=== PATIENT | female | born 1975 | race Caucasian/White ===

== ENCOUNTER 2016-05-18 12:47 | Outpatient (CLI) | payer OTHER ==
--- NOTE | 2016-05-18 14:09 | DIAGNOSTIC IMAGING REPORT ---
PROCEDURE: MG BILATERAL SCREENING W/CAD INDICATION: Screening. History of breast reduction surgery TECHNIQUE: Bilateral CC and MLO digital views. COMPARISON: Compared to prior outside mammogram from [place], [place] on 05/28/2015 FINDINGS: Computer-aided detection applied. Mildly dense parenchymal pattern with a few dystrophic calcifications. IMPRESSION: 1. Negative mammogram RESULT CODE: 1- Negative. A. A negative report should not delay biopsy if a dominant or clinically suspicious mass is present. 10-15% of cancers are not identified by x-ray. B. A negative report may reinforce clinical impression. C. Adenosis and dense breasts may obscure an underlying neoplasm. D. False positive reports average 6-10%. E.. A yearly screening mammogram is recommended. A reminder letter will be scheduled.
== END 2016-05-18 23:00 ==
LOC: MAM SRH 12:47
DX: Z12.31 Encounter for screening mammogram for malignant neoplasm of breast (principal); Z98.890 Other specified postprocedural states

== ENCOUNTER 2016-06-09 15:31 | Emergency (ER) | payer OTHER ==
--- NOTE | 2016-06-09 16:53 | ED ORDER SUMMARY ---
..... Patient: TRE SNIDER OrderSheet [facility] VisitID: [id number] [address] [place] [address] 40y, F Registration Date/Time: 06/09/2016 ORDER SHEET Weight: 125.6 kg (stated) Allergies: Abilify, Zyprexa GENERAL ORDERS: MEDICATION ORDERS: Phenergan IV 12.5 mg (HIGH ALERT MEDICATION, NOW) (15:59 06/09/2016 EKoroleva P.A.-C) (16:17 JSimbeck R.N.) Phenergan IV 12.5 mg (HIGH ALERT MEDICATION) (17:18 06/09/2016 EKoroleva P.A.-C) (17:26 JSimbeck R.N.) IV FLUIDS: IV NS : initial bolus 1000 mL (1000 mL/hr), then 1000 mL/hr for X1 (NOW); Chay (15:58 06/09/2016 EKoroleva P.A.-C) (16:17 JSimbeck R.N.) Toradol IV 30 mg (NOW) (15:58 06/09/2016 EKoroleva P.A.-C) (16:20 JSimbeck R.N.) Dilaudid IV 0.5 mg (HIGH ALERT MEDICATION, NOW) (15:58 06/09/2016 EKoroleva P.A.-C) (16:21 JSimbeck R.N.) Dilaudid IV 0.5 mg (HIGH ALERT MEDICATION, NOW) (17:18 06/09/2016 EKoroleva P.A.-C) (17:27 JSimbeck R.N.) ORDER SHEET NOTES: [Electronically signed by Haydee Apodaca PHannahAHannah-C (17:37 06/09/2016)] [Electronically signed by Esperanza Brumfield R.N. (08:39 06/15/2016)] [Electronically locked/signed by Esperanza Brumfield R.N. (08:39 06/15/2016)]
--- NOTE | 2016-06-09 16:53 | ED ORDER SUMMARY ---
..... Patient: TRE SNIDER OrderSheet [facility] VisitID: [id number] [address] [place] [address] 40y, F Registration Date/Time: 06/09/2016 ORDER SHEET Weight: 125.6 kg (stated) Allergies: Abilify, Zyprexa GENERAL ORDERS: MEDICATION ORDERS: Phenergan IV 12.5 mg (HIGH ALERT MEDICATION, NOW) (15:59 06/09/2016 EKoroleva P.A.-C) (16:17 JSimbeck R.N.) Phenergan IV 12.5 mg (HIGH ALERT MEDICATION) (17:18 06/09/2016 EKoroleva P.A.-C) (17:26 JSimbeck R.N.) IV FLUIDS: IV NS : initial bolus 1000 mL (1000 mL/hr), then 1000 mL/hr for X1 (NOW); Chay (15:58 06/09/2016 EKoroleva P.A.-C) (16:17 JSimbeck R.N.) Toradol IV 30 mg (NOW) (15:58 06/09/2016 EKoroleva P.A.-C) (16:20 JSimbeck R.N.) Dilaudid IV 0.5 mg (HIGH ALERT MEDICATION, NOW) (15:58 06/09/2016 EKoroleva P.A.-C) (16:21 JSimbeck R.N.) Dilaudid IV 0.5 mg (HIGH ALERT MEDICATION, NOW) (17:18 06/09/2016 EKoroleva P.A.-C) (17:27 JSimbeck R.N.) ORDER SHEET NOTES: [Electronically signed by Haydee Apodaca PHannahAHannah-C (17:37 06/09/2016)] [Electronically signed by Esperanza Brumfield R.N. (08:39 06/15/2016)] [Electronically locked/signed by Esperanza Brumfield R.N. (08:39 06/15/2016)]
--- NOTE | 2016-06-09 16:53 | ED CLINICAL REPORT ---
Clinical Report - Physicians/Mid Levels [facility] [address] [place] [address] 06/09/2016 15:33 [id number] Time Seen: 15:46 Mar 2016. Arrived- By private vehicle. Historian- patient. HISTORY OF PRESENT ILLNESS Is still present. Chief Complaint: HEADACHE. This started 4 days. It is described as similar to previous headaches. The patient has had nausea and vomiting. No preceding symptoms or numbness. (Patient reports migraine-like headache over the last 4 days, has tried all of her medications Imitrex and Motrin, has had nausea. No new neck pain, has a history of a bulging disc in her neck. Throbbing pain. Denies any fevers or chills. Denies any cough.). REVIEW OF SYSTEMS No sinus pressure, ear pain, diarrhea or skin rash. All systems otherwise negative, except as recorded above. SOCIAL HISTORY Never smoker. Alcohol use. No drug use. ADDITIONAL NOTES The nursing notes have been reviewed. PHYSICAL EXAM Vital Signs: 06/09/2016 17:16 BP: 90/60. HR: 72. RR: 16. O2 saturation: 97%. Pain level now: 8/10. Appearance: Alert. Eyes: Pupils equal, round and reactive to light. Eyes normal inspection. ENT: No nasal discharge or pharyngeal erythema. Neck: Normal inspection. CVS: Heart sounds normal. Respiratory: No respiratory distress. Abdomen: Soft. No abdominal tenderness. Back: Normal inspection. Neuro: Oriented X 3. Alert. No cerebellar findings. PROGRESS AND PROCEDURES Course of Care: Patient reports she usually has about 14-15 g a month, and occasionally a few times he has to come to the ER for pain relief. Patient reports her landlord drove her here. Headache is similar in nature. Has been ongoing for 4 days. No neck pain that is new. At this time suspicion for meningitis, several hemorrhage is low. Patient is stable. Patient/family counseled. Differential Diagnosis: I considered migraine, cluster headache, ischemic stroke, subarachnoid hemorrhage, vascular malformation, vascular dissection, malignant hypertension, cerebral venous thrombosis, carbon monoxide exposure, trigeminal neuralgia, Chuckie-Carter neuralgia, subdural hematoma, muscle tension, acute angle-closure glaucoma and pseudo-tumor cerebri as a possible cause of headache in this patient. This is a partial list of diagnoses considered. Disposition: Discharged. Condition: good. CLINICAL IMPRESSION Chronic recurrent migraine headache. INSTRUCTIONS Warnings: Further evaluation is necessary. Prescription Medications: Hydrocodone/APAP 5mg / 325mg: take 1 orally every 6 hours as needed for pain. Dispense twelve (12). No refill. Zofran (orally disintegrating tablets) 4 mg: take 1 orally every 6 hours as needed for nausea. Dispense ten (10). No refill. Substitution is permissible. Follow-up: Follow up with a specialist in three days. Understanding of the discharge instructions verbalized. (Electronically signed by Haydee Apodaca P.A.-C 06/09/2016 17:37)
--- NOTE | 2016-06-09 16:53 | ED NURSING NOTES ---
Clinical Report - Nurses [address] [place] [address] 06/09/2016 15:33 Patient: TRE SNIDER TRIAGE Triage time 15:38. Acuity: LEVEL 4. Chief Complaint: MIGRAINE HEADACHE and (x4 days. Photophobia, nausea, vomiting, headache, unable to eat.). 15:41 06/09/16. ABE COMA SCORE: [place] Coma Scale: 15- eyes open spontaneously (4); best verbal response- oriented x 4 (5); best motor response- obeys commands (6). --15:50 Ernesto Lee R.N. 15:38 06/09/16. BP: 120/93. HR: 82. RR: 16. O2 saturation: 96% on room air. Temp: 97.4 F (oral). Pain level now: 12/10. --15:50 Ernesto Lee R.N. 15:51 06/09/16. SEPSIS SCREEN: Sepsis Screen. Negative (no infection suspected/documented). --15:51 Ernesto Lee R.N. Weight: 125.6 kg stated. Height/Length: 71 inches Per Patient. BMI: 38.6. --15:47 Ernesto Lee R.N. Medications Imitrex Oral. --15:40 Ernesto Lee R.N. Ibuprofen Oral. --15:40 Ernesto Lee R.N. SEROquel Oral. --15:46 Ernesto Lee R.N. Depakote Oral. --15:46 Ernesto Lee R.N. Propranolol HCl ER Oral. --15:46 Ernesto Lee R.N. Provastatin . --15:46 Ernesto Lee R.N. Topamax Oral. --15:46 Ernesto Lee R.N. TraZODone HCl Oral. --15:46 Ernesto Lee R.N. Robaxin-750 Oral. --15:47 Simbeck, Ernesto, R.N. Allergies Abilify. --15:42 Ernesto Lee R.N. Zyprexa. --15:42 Ernesto Lee R.N. History Historian: patient. 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 (Imitrex, Robaxin, Cold packs,). SOCIAL HX: Never smoker. Occasional alcohol use. No drug use. ABUSE ASSESSMENT: No report of abuse. --15:50 Ernesto Lee R.N. PROBLEMS: Migraine Headache. --15:41 Ernesto Lee R.N. Bipolar Disorder. --15:47 Ernesto Lee R.N. ADDITIONAL SURGERIES: Appendectomy. Breast Reduction. Cholecystectomy. Hysterectomy. Tubal Ligation. --15:47 Ernesto Lee R.N. Interventions ID band on patient. To treatment room. --15:50 Ernesto Lee R.N. PHYSICAL ASSESSMENT 15:52 06/09/16. Ambulatory to room. GENERAL / NEURO / PSYCH: Alert. Oriented X 4. Appears in pain. Speech within normal limits. HEENT: No facial asymmetry noted. Photophobia present. Pupils equal, round and reactive to light. RESPIRATORY: Respirations not labored. Breath sounds within normal limits. CVS: Capillary refill less than 2 seconds. GI / : The patient has had nausea. Abdomen soft and nontender. SKIN: Skin is warm and dry. --15:53 Ernesto Lee R.N. NURSING PROGRESS NOTES 15:54 06/09/16. Head of bed elevated. Reassurance given. Lights dimmed. Two patient identifiers checked. Call light placed in reach. Bed placed in lowest position. Brakes of bed on. Patient ready for evaluation- chart flagged. --15:54 Ernesto Lee R.N. 16:05 06/09/2016 Site #1 started via IV in the right forearm with an 20g angiocath, with aseptic technique and good blood return; one attempt. Saline lock flushed with 10 mL saline. --16:17 Ernesto Lee R.N. 16:05 06/09/2016 Started bag #1 1000 mL IV Fluids IV NS (Saline); bolus of 1000 mL over 45 minute(s) via site #1. Allergies verified and confirmed 5 rights. IV patency established. IV site checked: no pain, redness, or swelling. IV flushed thoroughly pre- and post-medication administration. --16:17 Ernesto Lee R.N. 16:10 06/09/2016 PHENERGAN (Promethazine HCl) IVP 12.5 mg given over 2 minute(s) via site #1. Allergies verified and confirmed 5 rights. IV patency established. IV site checked: no pain, redness, or swelling. IV flushed thoroughly pre- and post-medication administration. IVP given by RN. --16:17 Ernesto Lee R.N. 16:12 06/09/2016 Toradol IVP 30 mg given over 1 minute(s) via site #1. Allergies verified and confirmed 5 rights. IV patency established. IV site checked: no pain, redness, or swelling. IV flushed thoroughly pre- and post-medication administration. IVP given by RN. --16:20 Ernesto eLe R.N. 16:14 06/09/2016 Dilaudid (HYDROmorphone HCl PF) IVP 0.5 mg given over 1 minute(s) via site #1. Allergies verified, confirmed 5 rights and sedative warning given to the patient. IV patency established. IV site checked: no pain, redness, or swelling. IV flushed thoroughly pre- and post-medication administration. IVP given by RN. --16:21 Ernesto Lee R.N. 16:53 06/09/2016 IV Fluids IV NS Bag Change: bag #1 completed. Total amount infused: 1000. STARTED bag #2 (1000 mL) at 1000 mL/hr. Confirmed 5 rights. IV patency established. IV site checked: no pain, redness, or swelling. IV flushed thoroughly. --16:53 Ernesto Lee R.N. 16:54 06/09/2016 PHENERGAN IVP Response: no adverse reaction pain is improving. Symptoms have improved. --16:54 Ernesto Lee R.N. 16:54 06/09/2016 Toradol IVP Response: no adverse reaction pain is improving. Symptoms have improved. --16:54 Ernesto Lee R.N. 16:54 06/09/2016 Dilaudid IVP Response: no adverse reaction pain is improving. Symptoms have improved. --16:54 Ernesto Lee R.N. 16:05 06/09/16. BP: 101/70. HR: 72. RR: 16. O2 saturation: 94% on room air. Pain level now: 12/10. --16:56 Ernesto Lee R.N. 16:45 06/09/16. BP: 94/61. HR: 72. RR: 16. O2 saturation: 94% on room air. Pain level now: 11/09. --16:57 Ernesto Lee R.N. <<STRICKEN ENTRY-- 16:45 06/09/16. BP: 94/61. HR: 72. RR: 16. O2 saturation: 94% on room air. Pain level now: 09/09. --16:57 Ernesto Lee R.N. --END STRIKE>> Correction. --17:18 Ernesto Lee R.N. 17:16 06/09/16. BP: 90/60. HR: 72. RR: 16. O2 saturation: 97% on room air. Pain level now: 11/09. --17:17 Ernesto Lee R.N. 17:22 06/09/2016 PHENERGAN (Promethazine HCl) IVP 12.5 mg given over 2 minute(s) via site #1. Allergies verified and confirmed 5 rights. IV patency established. IV site checked: no pain, redness, or swelling. IV flushed thoroughly pre- and post-medication administration. IVP given by RN. --17:26 Ernesto Lee R.N. 17:24 06/09/2016 Dilaudid (HYDROmorphone HCl PF) IVP 0.5 mg given over 1 minute(s) via site #1. Allergies verified, confirmed 5 rights and sedative warning given to the patient. IV patency established. IV site checked: no pain, redness, or swelling. IV flushed thoroughly pre- and post-medication administration. IVP given by RN. --17:27 Ernesto Lee R.N. 17:40 06/09/2016 IV Fluids IV NS Discontinued: bag #2 completed. Total amount infused: 1000 mL. IV patency established. IV site checked: no pain, redness, or swelling. IV flushed thoroughly. --17:51 Ernesto Lee R.N. 17:46 06/09/2016 Site #1 removed upon discharge. Bandage applied. --17:51 Ernesto Lee R.N. DISPOSITION / DISCHARGE 17:49 06/09/16. Departure time: 1748. Condition at departure: improved and stable. No learning barriers present. Discharge instructions provided and reviewed with the patient. Reviewed medication(s). Patient verbalized understanding. Written instructions provided in Guyanese. The patient was discharged by the physician assistant housekeeping manager. She was discharged home and accompanied by freight car inspector. She left the Emergency Department ambulatory and via private vehicle. Fiberglass Container Winding Operator driving. --17:51 Ernesto Lee R.N. 17:40 06/09/16. BP: 106/67. HR: 88. RR: 16. O2 saturation: 98% on room air. Temp: 97.7 F (oral). Pain level now: 09/09. --17:51 Ernesto Lee R.N. Locked/Released at 06/15/2016 8:39 by Esperanza Brumfield R.N.
--- NOTE | 2016-06-09 16:53 | ED NURSING NOTES ---
Clinical Report - Nurses [address] [place] [address] 06/09/2016 15:33 Patient: TRE SNIDER TRIAGE Triage time 15:38. Acuity: LEVEL 4. Chief Complaint: MIGRAINE HEADACHE and (x4 days. Photophobia, nausea, vomiting, headache, unable to eat.). 15:41 06/09/16. ABE COMA SCORE: [place] Coma Scale: 15- eyes open spontaneously (4); best verbal response- oriented x 4 (5); best motor response- obeys commands (6). --15:50 Ernesto Lee R.N. 15:38 06/09/16. BP: 120/93. HR: 82. RR: 16. O2 saturation: 96% on room air. Temp: 97.4 F (oral). Pain level now: 12/10. --15:50 Ernesto Lee R.N. 15:51 06/09/16. SEPSIS SCREEN: Sepsis Screen. Negative (no infection suspected/documented). --15:51 Ernesto Lee R.N. Weight: 125.6 kg stated. Height/Length: 71 inches Per Patient. BMI: 38.6. --15:47 Ernesto Lee R.N. Medications Imitrex Oral. --15:40 Ernesto Lee R.N. Ibuprofen Oral. --15:40 Ernesto Lee R.N. SEROquel Oral. --15:46 Ernesto Lee R.N. Depakote Oral. --15:46 Ernesto Lee R.N. Propranolol HCl ER Oral. --15:46 Ernesto Lee R.N. Provastatin . --15:46 Ernesto Lee R.N. Topamax Oral. --15:46 Ernesto Lee R.N. TraZODone HCl Oral. --15:46 Ernesto Lee R.N. Robaxin-750 Oral. --15:47 Simbeck, Ernesto, R.N. Allergies Abilify. --15:42 Ernesto Lee R.N. Zyprexa. --15:42 Ernesto Lee R.N. History Historian: patient. 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 (Imitrex, Robaxin, Cold packs,). SOCIAL HX: Never smoker. Occasional alcohol use. No drug use. ABUSE ASSESSMENT: No report of abuse. --15:50 Ernesto Lee R.N. PROBLEMS: Migraine Headache. --15:41 Ernesto Lee R.N. Bipolar Disorder. --15:47 Ernesto Lee R.N. ADDITIONAL SURGERIES: Appendectomy. Breast Reduction. Cholecystectomy. Hysterectomy. Tubal Ligation. --15:47 Ernesto Lee R.N. Interventions ID band on patient. To treatment room. --15:50 Ernesto Lee R.N. PHYSICAL ASSESSMENT 15:52 06/09/16. Ambulatory to room. GENERAL / NEURO / PSYCH: Alert. Oriented X 4. Appears in pain. Speech within normal limits. HEENT: No facial asymmetry noted. Photophobia present. Pupils equal, round and reactive to light. RESPIRATORY: Respirations not labored. Breath sounds within normal limits. CVS: Capillary refill less than 2 seconds. GI / : The patient has had nausea. Abdomen soft and nontender. SKIN: Skin is warm and dry. --15:53 Ernesto Lee R.N. NURSING PROGRESS NOTES 15:54 06/09/16. Head of bed elevated. Reassurance given. Lights dimmed. Two patient identifiers checked. Call light placed in reach. Bed placed in lowest position. Brakes of bed on. Patient ready for evaluation- chart flagged. --15:54 Ernesto Lee R.N. 16:05 06/09/2016 Site #1 started via IV in the right forearm with an 20g angiocath, with aseptic technique and good blood return; one attempt. Saline lock flushed with 10 mL saline. --16:17 Ernesto Lee R.N. 16:05 06/09/2016 Started bag #1 1000 mL IV Fluids IV NS (Saline); bolus of 1000 mL over 45 minute(s) via site #1. Allergies verified and confirmed 5 rights. IV patency established. IV site checked: no pain, redness, or swelling. IV flushed thoroughly pre- and post-medication administration. --16:17 Ernesto Lee R.N. 16:10 06/09/2016 PHENERGAN (Promethazine HCl) IVP 12.5 mg given over 2 minute(s) via site #1. Allergies verified and confirmed 5 rights. IV patency established. IV site checked: no pain, redness, or swelling. IV flushed thoroughly pre- and post-medication administration. IVP given by RN. --16:17 Ernesto Lee R.N. 16:12 06/09/2016 Toradol IVP 30 mg given over 1 minute(s) via site #1. Allergies verified and confirmed 5 rights. IV patency established. IV site checked: no pain, redness, or swelling. IV flushed thoroughly pre- and post-medication administration. IVP given by RN. --16:20 Ernesto Lee R.N. 16:14 06/09/2016 Dilaudid (HYDROmorphone HCl PF) IVP 0.5 mg given over 1 minute(s) via site #1. Allergies verified, confirmed 5 rights and sedative warning given to the patient. IV patency established. IV site checked: no pain, redness, or swelling. IV flushed thoroughly pre- and post-medication administration. IVP given by RN. --16:21 Ernesto Lee R.N. 16:53 06/09/2016 IV Fluids IV NS Bag Change: bag #1 completed. Total amount infused: 1000. STARTED bag #2 (1000 mL) at 1000 mL/hr. Confirmed 5 rights. IV patency established. IV site checked: no pain, redness, or swelling. IV flushed thoroughly. --16:53 Ernesto Lee R.N. 16:54 06/09/2016 PHENERGAN IVP Response: no adverse reaction pain is improving. Symptoms have improved. --16:54 Ernesto Lee R.N. 16:54 06/09/2016 Toradol IVP Response: no adverse reaction pain is improving. Symptoms have improved. --16:54 Ernesto Lee R.N. 16:54 06/09/2016 Dilaudid IVP Response: no adverse reaction pain is improving. Symptoms have improved. --16:54 Ernesto Lee R.N. 16:05 06/09/16. BP: 101/70. HR: 72. RR: 16. O2 saturation: 94% on room air. Pain level now: 12/10. --16:56 Ernesto Lee R.N. 16:45 06/09/16. BP: 94/61. HR: 72. RR: 16. O2 saturation: 94% on room air. Pain level now: 11/09. --16:57 Ernesto Lee R.N. <<STRICKEN ENTRY-- 16:45 06/09/16. BP: 94/61. HR: 72. RR: 16. O2 saturation: 94% on room air. Pain level now: 09/09. --16:57 Ernesto Lee R.N. --END STRIKE>> Correction. --17:18 Ernesto Lee R.N. 17:16 06/09/16. BP: 90/60. HR: 72. RR: 16. O2 saturation: 97% on room air. Pain level now: 11/09. --17:17 Ernesto Lee R.N. 17:22 06/09/2016 PHENERGAN (Promethazine HCl) IVP 12.5 mg given over 2 minute(s) via site #1. Allergies verified and confirmed 5 rights. IV patency established. IV site checked: no pain, redness, or swelling. IV flushed thoroughly pre- and post-medication administration. IVP given by RN. --17:26 Ernesto Lee R.N. 17:24 06/09/2016 Dilaudid (HYDROmorphone HCl PF) IVP 0.5 mg given over 1 minute(s) via site #1. Allergies verified, confirmed 5 rights and sedative warning given to the patient. IV patency established. IV site checked: no pain, redness, or swelling. IV flushed thoroughly pre- and post-medication administration. IVP given by RN. --17:27 Ernesto Lee R.N. 17:40 06/09/2016 IV Fluids IV NS Discontinued: bag #2 completed. Total amount infused: 1000 mL. IV patency established. IV site checked: no pain, redness, or swelling. IV flushed thoroughly. --17:51 Ernesto Lee R.N. 17:46 06/09/2016 Site #1 removed upon discharge. Bandage applied. --17:51 Ernesto Lee R.N. DISPOSITION / DISCHARGE 17:49 06/09/16. Departure time: 1748. Condition at departure: improved and stable. No learning barriers present. Discharge instructions provided and reviewed with the patient. Reviewed medication(s). Patient verbalized understanding. Written instructions provided in Turkmen. The patient was discharged by the physician operations manager assistant. She was discharged home and accompanied by complex care nurse practitioner. She left the Emergency Department ambulatory and via private vehicle. Ribbon Sweatband Operator driving. --17:51 Ernesto Lee R.N. 17:40 06/09/16. BP: 106/67. HR: 88. RR: 16. O2 saturation: 98% on room air. Temp: 97.7 F (oral). Pain level now: 09/09. --17:51 Ernesto Lee R.N. Locked/Released at 06/15/2016 8:39 by Esperanza Brumfield R.N.
--- NOTE | 2016-06-09 16:53 | ED CLINICAL REPORT ---
Clinical Report - Physicians/Mid Levels [facility] [address] [place] [address] 06/09/2016 15:33 [facility] [id number] Time Seen: 15:46 Mar 2016. Arrived- By private vehicle. Historian- patient. HISTORY OF PRESENT ILLNESS Is still present. Chief Complaint: HEADACHE. This started 4 days. It is described as similar to previous headaches. The patient has had nausea and vomiting. No preceding symptoms or numbness. (Patient reports migraine-like headache over the last 4 days, has tried all of her medications Imitrex and Motrin, has had nausea. No new neck pain, has a history of a bulging disc in her neck. Throbbing pain. Denies any fevers or chills. Denies any cough.). REVIEW OF SYSTEMS No sinus pressure, ear pain, diarrhea or skin rash. All systems otherwise negative, except as recorded above. SOCIAL HISTORY Never smoker. Alcohol use. No drug use. ADDITIONAL NOTES The nursing notes have been reviewed. PHYSICAL EXAM Vital Signs: 06/09/2016 17:16 BP: 90/60. HR: 72. RR: 16. O2 saturation: 97%. Pain level now: 8/10. Appearance: Alert. Eyes: Pupils equal, round and reactive to light. Eyes normal inspection. ENT: No nasal discharge or pharyngeal erythema. Neck: Normal inspection. CVS: Heart sounds normal. Respiratory: No respiratory distress. Abdomen: Soft. No abdominal tenderness. Back: Normal inspection. Neuro: Oriented X 3. Alert. No cerebellar findings. PROGRESS AND PROCEDURES Course of Care: Patient reports she usually has about 14-15 g a month, and occasionally a few times he has to come to the ER for pain relief. Patient reports her landlord drove her here. Headache is similar in nature. Has been ongoing for 4 days. No neck pain that is new. At this time suspicion for meningitis, several hemorrhage is low. Patient is stable. Patient/family counseled. Differential Diagnosis: I considered migraine, cluster headache, ischemic stroke, subarachnoid hemorrhage, vascular malformation, vascular dissection, malignant hypertension, cerebral venous thrombosis, carbon monoxide exposure, trigeminal neuralgia, Chuckie-Carter neuralgia, subdural hematoma, muscle tension, acute angle-closure glaucoma and pseudo-tumor cerebri as a possible cause of headache in this patient. This is a partial list of diagnoses considered. Disposition: Discharged. Condition: good. CLINICAL IMPRESSION Chronic recurrent migraine headache. INSTRUCTIONS Warnings: Further evaluation is necessary. Prescription Medications: Hydrocodone/APAP 5mg / 325mg: take 1 orally every 6 hours as needed for pain. Dispense twelve (12). No refill. Zofran (orally disintegrating tablets) 4 mg: take 1 orally every 6 hours as needed for nausea. Dispense ten (10). No refill. Substitution is permissible. Follow-up: Follow up with a specialist in three days. Understanding of the discharge instructions verbalized. (Electronically signed by Haydee Apodaca P.A.-C 06/09/2016 17:37)
--- NOTE | 2016-06-15 08:40 | ED DISCHARGE INSTRUCTIONS ---
Patient: TRE SNIDER General Instructions [facility] VisitID: [id number] [place] [address] 40y, F Registration Date/Time: 06/09/2016 Chronic recurrent migraine headache. INSTRUCTIONS Warnings: Further evaluation is necessary. Prescription Medications: Hydrocodone/APAP 5mg / 325mg: take 1 orally every 6 hours as needed for pain. Dispense twelve (12). No refill. Zofran (orally disintegrating tablets) 4 mg: take 1 orally every 6 hours as needed for nausea. Dispense ten (10). No refill. Substitution is permissible. Follow-up: Follow up with a specialist in three days. Understanding of the discharge instructions verbalized. ADDITIONAL INFORMATION Migraine Headache Migraine headaches are related to changes in blood flow to the brain. This causes throbbing or constant pain on one or both sides of the head. The pain may last from a few hours to several days. There is usually nausea, vomiting, sensitivity to light and sound, and blurred vision. A migraine attack may be triggered by emotional stress, hormone changes during the menstrual cycle, oral contraceptives, alcohol use, certain foods containing tyramine, eye strain, weather changes, missing meals, or too little or too much sleep. Home Care For This Headache: 1) If you were given pain medicine for this headache, do not drive yourself home . Arrange for a ride, instead. When you get home, try to sleep. You should feel much better when you wake up. 2) Migraine headaches may improve with an ice pack on the forehead or at the base of the skull. Heat to the back of your neck may relieve any neck spasm. 3) Drink only clear liquids or eat a very light diet to avoid nausea/vomiting until symptoms improve. Preventing Future Headaches: 1) Pay attention to those factors that seem to trigger your headache. Try to avoid them when you can. If you have frequent headaches, it is useful to keep a diary of what you were doing, feeling or eating in the hours before each attack. Show this to your doctor to help find the cause of your headaches. a) If you feel that stress is a factor in your headaches, look at the sources of stress in your life. Find ways to release the build-up of those stresses by using regular exercise, relaxation methods (yoga, meditation), bio-feedback or simply taking time-out for yourself. For more information about this, consult your doctor or go to a local bookstore and review books and tapes on this subject. b) Tyramine is a substance present in the following foods : chocolate, yogurt, all cheeses except cottage cheese and cream cheese. smoked or pickled fish and meat (including bullock, caviar, bologna, pepperoni, salami), liver, avocados, bananas, figs, raisins, and red wine. Be aware that these foods may trigger a migraine in some persons. Try taking these foods out of your diet for 1-2 months to see if this reduces headache frequency. Treating Future Attacks: 1) At the first sign of a headache, take time out if possible. Find a quiet, dark, comfortable place to sit or lie down. Let yourself relax or sleep. 2) An ice pack on the forehead or area of greatest pain may help. If you are having muscle spasm and tightness of the neck, a heating pad and massage to this area may be helpful. 3) If you have been prescribed a medicine to stop a migraine headache, use this at the very first warning sign of the headache (aura or initial pain) for best results. Follow Up with your doctor if the headache is not better within the next 24 hours. If you have frequent headaches you should discuss a treatment plan with your primary care doctor. Ask if you can have medicine to take at home the next time you get a bad headache. Poorly controlled chronic headaches may require a referral to a neurologist (headache specialist). Get Prompt Medical Attention if any of the following occur: Your head pain gets worse, or does not improve within 24 hours Repeated vomiting (cant keep liquids down) Sinus or ear or throat pain (not already reported) Fever of 100.4 F (38 C) or higher, or as directed by your healthcare provider Stiff neck Extreme drowsiness, confusion or fainting Dizziness, vertigo (dizziness with spinning sensation) Weakness of an arm or leg or one side of the face Difficulty with speech or vision Hydrocodone Bitartrate, Acetaminophen Oral tablet What is this medicine? ACETAMINOPHEN; HYDROCODONE (a set a MARK joby fen; laurita droe KOE done) is a pain reliever. It is used to treat mild to moderate pain. How should I use this medicine? Take this medicine by mouth. Swallow it with a full glass of water. Follow the directions on the prescription label. If the medicine upsets your stomach, take the medicine with food or milk. Do not take more than you are told to take. Talk to your associate software developer regarding the use of this medicine in children. This medicine is not approved for use in children. What side effects may I notice from receiving this medicine? Side effects that you should report to your doctor or health health care consultant as soon as possible: allergic reactions like skin rash, itching or hives, swelling of the face, lips, or tongue breathing problems confusion feeling faint or lightheaded, falls stomach pain yellowing of the eyes or skin Side effects that usually do not require medical attention (report to your doctor or health health care consultant if they continue or are bothersome): nausea, vomiting stomach upset What may interact with this medicine? alcohol antihistamines isoniazid medicines for depression, anxiety, or psychotic disturbances medicines for sleep muscle relaxants naltrexone narcotic medicines (opiates) for pain phenobarbital ritonavir tramadol What if I miss a dose? If you miss a dose, take it as soon as you can. If it is almost time for your next dose, take only that dose. Do not take double or extra doses. Where should I keep my medicine? Keep out of the reach of children. This medicine can be abused. Keep your medicine in a safe place to protect it from theft. Do not share this medicine with anyone. Selling or giving away this medicine is dangerous and against the law. Store at room temperature between 15 and 30 degrees C (59 and 86 degrees F). Protect from light. Keep container tightly closed. Throw away any unused medicine after the expiration date. Discard unused medicine and used packaging carefully. Pets and children can be harmed if they find used or lost packages. What should I tell my health care provider before I take this medicine? They need to know if you have any of these conditions: brain tumor Crohn's disease, inflammatory bowel disease, or ulcerative colitis drink more than 3 alcohol-containing drinks per day drug abuse or addiction head injury heart or circulation problems kidney disease or problems going to the bathroom liver disease lung disease, asthma, or breathing problems an unusual or allergic reaction to acetaminophen, hydrocodone, other opioid analgesics, other medicines, foods, dyes, or preservatives or trying to get breast-feeding What should I watch for while using this medicine? Tell your doctor or health health care consultant if your pain does not go away, if it gets worse, or if you have new or a different type of pain. You may develop tolerance to the medicine. Tolerance means that you will need a higher dose of the medicine for pain relief. Tolerance is normal and is expected if you take the medicine for a long time. Do not suddenly stop taking your medicine because you may develop a severe reaction. Your body becomes used to the medicine. This does NOT mean you are addicted. Addiction is a behavior related to getting and using a drug for a non-medical reason. If you have pain, you have a medical reason to take pain medicine. Your doctor will tell you how much medicine to take. If your doctor wants you to stop the medicine, the dose will be slowly lowered over time to avoid any side effects. You may get drowsy or dizzy when you first start taking the medicine or change doses. Do not drive, use machinery, or do anything that may be dangerous until you know how the medicine affects you. Stand or sit up slowly. There are different types of narcotic medicines (opiates) for pain. If you take more than one type at the same time, you may have more side effects. Give your health care provider a list of all medicines you use. Your doctor will tell you how much medicine to take. Do not take more medicine than directed. Call emergency for help if you have problems breathing. The medicine will cause constipation. Try to have a bowel movement at least every 2 to 3 days. If you do not have a bowel movement for 3 days, call your doctor or health health care consultant. Too much acetaminophen can be very dangerous. Do not take Tylenol (acetaminophen) or medicines that contain acetaminophen with this medicine. Many non-prescription medicines contain acetaminophen. Always read the labels carefully. Ondansetron Oral disintegrating tablet What is this medicine? ONDANSETRON (on BRIANNA se naa) is used to treat nausea and vomiting caused by chemotherapy. It is also used to prevent or treat nausea and vomiting after surgery. How should I use this medicine? These tablets are made to dissolve in the mouth. Do not try to push the tablet through the foil backing. With dry hands, peel away the foil backing and gently remove the tablet. Place the tablet in the mouth and allow it to dissolve, then swallow. While you may take these tablets with water, it is not necessary to do so. Talk to your associate software developer regarding the use of this medicine in children. Special care may be needed. What side effects may I notice from receiving this medicine? Side effects that you should report to your doctor or health health care consultant as soon as possible: allergic reactions like skin rash, itching or hives, swelling of the face, lips, or tongue breathing problems dizziness fast or irregular heartbeat feeling faint or lightheaded, falls fever and chills swelling of the hands and feet tightness in the chest Side effects that usually do not require medical attention (report to your doctor or health health care consultant if they continue or are bothersome): constipation or diarrhea headache What may interact with this medicine? Do not take this medicine with any of the following medications: -apomorphine -cisapride -dofetilide -dronedarone -pimozide -thioridazine -ziprasidone This medicine may also interact with the following medications: -carbamazepine -phenytoin -rifampicin -tramadol -other medicines that prolong the QT interval (cause an abnormal heart rhythm) What if I miss a dose? If you miss a dose, take it as soon as you can. If it is almost time for your next dose, take only that dose. Do not take double or extra doses. Where should I keep my medicine? Keep out of the reach of children. Store between 2 and 30 degrees C (36 and 86 degrees F). Throw away any unused medicine after the expiration date. What should I tell my health care provider before I take this medicine? They need to know if you have any of these conditions: heart disease history of irregular heartbeat liver disease low levels of magnesium or potassium in the blood an unusual or allergic reaction to ondansetron, granisetron, other medicines, foods, dyes, or preservatives or trying to get breast-feeding What should I watch for while using this medicine? Check with your doctor or health health care consultant as soon as you can if you have any sign of an allergic reaction. You have been given the following additional information: Headache, Migraine (Classical) Hydrocodone Bitartrate, Acetaminophen Oral tablet Ondansetron Oral disintegrating tablet (Electronically signed by KorHaydee hudson P.A.-C 06/09/2016 17:37)
--- NOTE | 2016-06-15 08:40 | ED MED RECONCILIATION SUMMARY ---
Patient: TRE SNIDER Medication Reconciliation Report [facility] VisitID: [id number] [address] [place] [place] [address] 40y, F Registration Date/Time: 06/09/2016 Weight: 125.6 kg Height/Length: 71 in. BMI: 38.6 ALLERGIES: Abilify, Zyprexa The patient's Home Medications are listed below: THE FOLLOWING MEDICATIONS NEED TO BE RECONCILED: Depakote Oral Ibuprofen Oral Imitrex Oral Propranolol HCl ER Oral Provastatin Robaxin-750 Oral SEROquel Oral Topamax Oral TraZODone HCl Oral The source(s) of the original Home Medication information: Not obtained. The following Medications were given to the patient in the Emergency Department: IV NS IV Fluids bolus 1000 mL over 45 minute(s), administered: 06/09/2016 4:05:00 PM PHENERGAN [IVP] IVP 12.5 mg, administered: 06/09/2016 4:10:00 PM Toradol [IVP] IVP 30 mg, administered: 06/09/2016 4:12:00 PM Dilaudid [IVP] IVP 0.5 mg, administered: 06/09/2016 4:14:00 PM PHENERGAN [IVP] IVP 12.5 mg, administered: 06/09/2016 5:22:00 PM Dilaudid [IVP] IVP 0.5 mg, administered: 06/09/2016 5:24:00 PM The following Medications were prescribed to the patient: Hydrocodone/APAP 5mg / 325mg: take 1 orally every 6 hours as needed for pain. Dispense twelve (12). No refill. -- Haydee Apodaca P.A.-Christin Zofran (orally disintegrating tablets) 4 mg: take 1 orally every 6 hours as needed for nausea. Dispense ten (10). No refill. Substitution is permissible. -- Haydee Apodaca P.A.-C
--- NOTE | 2016-06-15 08:40 | ED MAR SUMMARY ---
..... Medication Administration Record [facility] [address] [place] [address] Patient: TRE SNIDER Visit ID: [id number] 40y, F Weight: 125.6 kg Height/Length: 71 in BMI: 38.6 ALLERGIES: Zyprexa, Abilify Start 16:05 06/09/2016 Ernesto Lee R.N., Stop 17:40 06/09/2016 Ernesto Lee R.N. Medication Administered: IV NS (SALINE), Dose: IV Fluids, Bolus: 1000 mL over 45 minute(s), Dispensed: 1000 mL bag, Site: #1 right forearm. Medication Ordered: IV NS : initial bolus 1000 mL (1000 mL/hr), then 1000 mL/hr for X1 (NOW); Chay. Given 16:10 06/09/2016 Ernesto Lee R.N. Medication Administered: PHENERGAN [IVP] (PROMETHAZINE HCL), Dose: 12.5 mg IVP over 2 minute(s), Site: #1 right forearm. Medication Ordered: Phenergan IV 12.5 mg (HIGH ALERT MEDICATION, NOW). Given 16:12 06/09/2016 Ernesto Lee R.N. Medication Administered: TORADOL [IVP], Dose: 30 mg IVP over 1 minute(s), Site: #1 right forearm. Medication Ordered: Toradol IV 30 mg (NOW). Given 16:14 06/09/2016 Ernesto Lee R.N. Medication Administered: DILAUDID [IVP] (HYDROMORPHONE HCL PF), Dose: 0.5 mg IVP over 1 minute(s), Site: #1 right forearm. Medication Ordered: Dilaudid IV 0.5 mg (HIGH ALERT MEDICATION, NOW). Given 17:22 06/09/2016 Ernesto Lee R.N. Medication Administered: PHENERGAN [IVP] (PROMETHAZINE HCL), Dose: 12.5 mg IVP over 2 minute(s), Site: #1 right forearm. Medication Ordered: Phenergan IV 12.5 mg (HIGH ALERT MEDICATION). Given 17:24 06/09/2016 Simbeck, Ernesto, R.N. Medication Administered: DILAUDID [IVP] (HYDROMORPHONE HCL PF), Dose: 0.5 mg IVP over 1 minute(s), Site: #1 right forearm. Medication Ordered: Dilaudid IV 0.5 mg (HIGH ALERT MEDICATION, NOW).
--- NOTE | 2016-06-15 08:40 | ED MAR SUMMARY ---
..... Medication Administration Record [facility] [address] [address] Patient: TRE SNIDER Visit ID: [id number] 40y, F Weight: 125.6 kg Height/Length: 71 in BMI: 38.6 ALLERGIES: Zyprexa, Abilify Start 16:05 06/09/2016 Ernesto Lee R.N., Stop 17:40 06/09/2016 Ernesto Lee R.N. Medication Administered: IV NS (SALINE), Dose: IV Fluids, Bolus: 1000 mL over 45 minute(s), Dispensed: 1000 mL bag, Site: #1 right forearm. Medication Ordered: IV NS : initial bolus 1000 mL (1000 mL/hr), then 1000 mL/hr for X1 (NOW); Chay. Given 16:10 06/09/2016 Ernesto Lee R.N. Medication Administered: PHENERGAN [IVP] (PROMETHAZINE HCL), Dose: 12.5 mg IVP over 2 minute(s), Site: #1 right forearm. Medication Ordered: Phenergan IV 12.5 mg (HIGH ALERT MEDICATION, NOW). Given 16:12 06/09/2016 Ernesto Lee R.N. Medication Administered: TORADOL [IVP], Dose: 30 mg IVP over 1 minute(s), Site: #1 right forearm. Medication Ordered: Toradol IV 30 mg (NOW). Given 16:14 06/09/2016 Ernesto Lee R.N. Medication Administered: DILAUDID [IVP] (HYDROMORPHONE HCL PF), Dose: 0.5 mg IVP over 1 minute(s), Site: #1 right forearm. Medication Ordered: Dilaudid IV 0.5 mg (HIGH ALERT MEDICATION, NOW). Given 17:22 06/09/2016 Ernesto Lee R.N. Medication Administered: PHENERGAN [IVP] (PROMETHAZINE HCL), Dose: 12.5 mg IVP over 2 minute(s), Site: #1 right forearm. Medication Ordered: Phenergan IV 12.5 mg (HIGH ALERT MEDICATION). Given 17:24 06/09/2016 Simbeck, Ernesto, R.N. Medication Administered: DILAUDID [IVP] (HYDROMORPHONE HCL PF), Dose: 0.5 mg IVP over 1 minute(s), Site: #1 right forearm. Medication Ordered: Dilaudid IV 0.5 mg (HIGH ALERT MEDICATION, NOW).
--- NOTE | 2016-06-15 08:40 | ED MED RECONCILIATION SUMMARY ---
Patient: TRE SNIDER Medication Reconciliation Report [facility] VisitID: [id number] [address] [place] [place] [address] 40y, F Registration Date/Time: 06/09/2016 Weight: 125.6 kg Height/Length: 71 in. BMI: 38.6 ALLERGIES: Abilify, Zyprexa The patient's Home Medications are listed below: THE FOLLOWING MEDICATIONS NEED TO BE RECONCILED: Depakote Oral Ibuprofen Oral Imitrex Oral Propranolol HCl ER Oral Provastatin Robaxin-750 Oral SEROquel Oral Topamax Oral TraZODone HCl Oral The source(s) of the original Home Medication information: Not obtained. The following Medications were given to the patient in the Emergency Department: IV NS IV Fluids bolus 1000 mL over 45 minute(s), administered: 06/09/2016 4:05:00 PM PHENERGAN [IVP] IVP 12.5 mg, administered: 06/09/2016 4:10:00 PM Toradol [IVP] IVP 30 mg, administered: 06/09/2016 4:12:00 PM Dilaudid [IVP] IVP 0.5 mg, administered: 06/09/2016 4:14:00 PM PHENERGAN [IVP] IVP 12.5 mg, administered: 06/09/2016 5:22:00 PM Dilaudid [IVP] IVP 0.5 mg, administered: 06/09/2016 5:24:00 PM The following Medications were prescribed to the patient: Hydrocodone/APAP 5mg / 325mg: take 1 orally every 6 hours as needed for pain. Dispense twelve (12). No refill. -- Haydee Apodaca P.A.-Christin Zofran (orally disintegrating tablets) 4 mg: take 1 orally every 6 hours as needed for nausea. Dispense ten (10). No refill. Substitution is permissible. -- Haydee Apodaca P.A.-C
== END 2016-06-09 16:48 | disposition home or self-care (01) ==
LOC: ED SRH 15:31
DX: G43.009 Migraine without aura, not intractable, without status migrainosus (principal); Z79.899 Other long term (current) drug therapy; Z88.8 Allergy status to other drugs, medicaments and biological substances

== ENCOUNTER 2016-07-17 12:41 | Outpatient (CLI) | payer OTHER ==
--- NOTE | 2016-07-17 14:45 | DIAGNOSTIC IMAGING REPORT ---
PROCEDURE: XR SHOULDER INJECTION (PRE MR) INDICATION: Left shoulder pain. TECHNIQUE: The patient was advised of the usual risks and complications including infection, bleeding and allergy. Supine RPO position. Following sterile preparation and 1% lidocaine anesthetic, fluoroscopic guidance (3.0 minutes, 782.38 mGy) was utilized to place a 22-gauge spinal needle into the ventral left glenohumeral joint. A 10.1 mL solution (2.5 mL Isovue 200, 2.5 mL 1% lidocaine, 2.5 mL 0.5% Marcaine, 2.5 mL normal saline, 0.1 mL gadolinium) was infused. Subsequently, 2 mL 40 mg/mL Kenalog was infused and the needle was withdrawn. COMPARISON: Comparison is made to radiographs of the left shoulder from [facility] on 06/29/2016. FINDINGS: Five AP views in neutral, internal and external rotation. Confirmation of intraarticular injection. There is moderate caudal angulation of the acromion. The rest the osseous structures and joint spaces are normal. Left shoulder arthrogram is normal The patient tolerated the procedure reasonably well and was transferred to MRI in satisfactory condition with instructions to resume routine activity the following day, and to call for any untoward symptoms (increasing pain/swelling). IMPRESSION: 1. Successful fluoroscopically guided diagnostic/therapeutic injection of the left glenohumeral joint (pre MRI). 2. Moderate caudal angulation of the acromion which may predispose to impingement. 3. Negative arthrogram of the left shoulder. 4. MR arthrography is pending.
--- NOTE | 2016-07-17 15:43 | DIAGNOSTIC IMAGING REPORT ---
PROCEDURE: MR UPPER EXT JOINT W/CONT-LT INDICATION: Left shoulder pain. Prior injury. TECHNIQUE: Intraarticular contrast/gadolinium injected earlier in the day. PD, and FAT-SAT PD, sagittal oblique images. PD, FAT-SAT PD, and FAT-SAT T1 coronal oblique images. T1, FAT-SAT T1, and fat sat PD axial images. COMPARISON: Comparison is made to conventional arthrogram earlier today (07/17/2016). FINDINGS: Moderate intermittent motion require repeat sequences. There is moderate caudal angulation of the type 2 acromion which results in mild to moderate impingement. Left acromioclavicular joint is normal. There is mild coracoid impingement (10 mm). There is mild tendinosis of the lateral and ventral rotator cuff, but no evidence of rotator cuff tear. Findings suggest a large tear of the anterior and inferior cartilaginous labrum with probable elevation of the periosteum (ALPSA type lesion).. Posterior and superior labrum appear intact. Superior, middle, and inferior glenohumeral ligaments appear intact. Biceps tendon is intact. IMPRESSION: 1. Moderate motion require repeat sequences (partially limits study). 2. Moderate caudal angulation of type 2 acromion results in mild to moderate impingement. 3. Mild coracoid impingement (10 mm). 4. Mild tendinosis of the lateral and ventral rotator cuff, but no evidence of rotator cuff tear. 5. Findings suggest large tear of the anterior and anterior inferior cartilaginous labrum, with elevation of the periosteum (ALPSA type lesion).
== END 2016-07-17 23:00 ==
LOC: XR SRH 12:41
PROC: BW1J1ZZ Fluoroscopy of Upper Extremity using Low Osmolar Contrast (ICD-10-PCS; principal; 2016-07-17)
PROC: BP39YZZ Magnetic Resonance Imaging (MRI) of Left Shoulder using Other Contrast (ICD-10-PCS; 2016-07-17)
DX: M75.42 Impingement syndrome of left shoulder (principal); M75.102 Unspecified rotator cuff tear or rupture of left shoulder, not specified as traumatic

== ENCOUNTER 2016-07-24 12:35 | Emergency (ER) | payer OTHER ==
--- NOTE | 2016-07-24 15:21 | DIAGNOSTIC IMAGING REPORT ---
PROCEDURE: XR CHEST 1 VIEW INDICATION: CHEST PAIN TECHNIQUE: Portable AP view 02:47 p.m. COMPARISON: None. FINDINGS: Lungs are clear. Heart and mediastinum are normal. Thorax is normal. IMPRESSION: 1. Negative chest.
--- NOTE | 2016-07-24 15:34 | ED ORDER SUMMARY ---
..... Patient: TRE SNIDER OrderSheet [facility] VisitID: [id number] [address] [place] [address] 40y, F Registration Date/Time: 07/24/2016 ORDER SHEET Weight: 121.5 kg (stated) Allergies: Abilify, Zyprexa GENERAL ORDERS: Oxygen Furnace Operator (Continuous) (12:53 07/24/2016 SReitz R.N. per protocol) (Ack 12:53 SReitz R.N.) (12:53 SReitz R.N.) UA-Culture if indicated Urgent (12:53 07/24/2016 SReitz R.N. per protocol) (Ack 12:54 Seamus) (13:39 SReitz R.N.) EKG - ER Stat (12:53 07/24/2016 SReitz R.N. per protocol) (12:53 SReitz R.N.) CBC w Diff Urgent (13:00 07/24/2016 Rocio ZENDEJAS) (13:03 JSvilmas R.N.) CMP Urgent (13:00 07/24/2016 Rocio ZENDEJAS) (13:03 Malories R.N.) PT with INR Urgent (13:00 07/24/2016 Rocio ZENDEJAS) (13:03 Malories R.N.) PTT Urgent (13:00 07/24/2016 Rocio ZENDEJAS) (13:03 Malories R.N.) Amylase Urgent (13:00 07/24/2016 Rocio ZENDEJAS) (13:03 Malories R.N.) Lipase Urgent (13:00 07/24/2016 Rocio ZENDEJAS) (13:04 Jr R.N.) CPK Urgent (13:00 07/24/2016 Rocio ZENDEJAS) (13:04 Jr R.N.) Troponin-I Urgent (13:00 07/24/2016 Rocio ZENDEJAS) (13:04 Jr R.N.) D-Dimer Urgent (13:00 07/24/2016 Rocio ZENDEJAS) (13:04 Jr R.N.) Urine Urgent (13:00 07/24/2016 Rocio ZENDEJAS) (Ack 13:10 Katt) (13:40 Navneet R.N.) PCT (Procalcitonin) Urgent (14:17 07/24/2016 Rocio ZENDEJAS) (Ack 14:22 Seamus) (14:22 Seamus) Chest 1V Urgent (14:21 07/24/2016 Rocio ZENDEJAS) (Ack 14:22 Seamus) (15:21 Seamus) MEDICATION ORDERS: Aspirin PO 325 mg (NOW) (13:00 07/24/2016 Rocio ZENDEJAS) (13:10 Jr R.N.) NitroGLYCERIN SL 0.4 mg (NOW, x3 PRN Chest Pain) (14:43 07/24/2016 Rocio ZENDEJAS) (Ack 15:04 Evens R.N.) (15:15 Evens R.N.) IV FLUIDS: IV Saline Lock (12:53 07/24/2016 Navneet Epperson.Jean Claude per protocol) (13:03 Jr R.N.) ORDER SHEET NOTES: [Electronically signed by Jarrett Fletcher MD (22:46 07/25/2016)] [Electronically signed by Dre Jules R.N. (09:11 07/31/2016)] [Electronically locked/signed by Dre Jules R.N. (09:11 07/31/2016)]
--- NOTE | 2016-07-24 15:34 | ED NURSING NOTES ---
Clinical Report - Nurses [facility] [address] [place] [address] 07/24/2016 12:36 Patient: TRE SNIDER TRIAGE Triage time 12:43. Acuity: LEVEL 3. Chief Complaint: CHEST PAIN. Alert. No acute distress. ( Pt. states she was just eating and then she started having chest pain is epigastric. The pain is worse on palpation.). SEPSIS SCREEN: Sepsis Screen. Negative (no infection suspected/documented). ABE COMA SCORE: [place] Coma Scale: 15- eyes open spontaneously (4); best verbal response- oriented x 4 (5); best motor response- obeys commands (6). --12:49 Ashanti Gaston R.N. 12:43 07/24/16. BP: 116/85. HR: 67. RR: 16. O2 saturation: 99%. Temp: 98.6 F. Pain level now 01/09. --12:49 Ashanti Gaston R.N. Weight: 121.5 kg stated. Height/Length: 72 inches Per Patient. BMI: 36.4. --12:44 Ashanti Gaston R.N. Medications Depakote Oral 1500mg daily. --12:46 Ashanti Gaston R.N. Topamax Oral, daily. --12:46 Ashanti Gaston R.N. Imitrex Oral, as needed. --12:46 Ashanti Gaston R.N. Ibuprofen Oral, as needed. --12:47 Ashanti Gaston R.N. Methocarbamol Oral, as needed. --12:47 Ashanti Gaston R.N. Propranolol HCl Oral, daily. --12:47 Ashanti Gaston R.N. SEROquel Oral, at bedtime. --12:47 Ashanti Gaston R.N. TraZODone HCl Oral, at bedtime. --12:47 Ashanti Gaston R.N. Pravastatin Sodium Oral, at bedtime. --12:48 Ashanti Gaston R.N. Levothyroxine Sodium Oral, daily. --12:48 Ashanti Gaston R.N. Allergies Abilify. Zyprexa. --12:48 Ashanti Gaston R.N. History Arrived by private vehicle. Historian: patient. Accompanied by (boyfriend). Primary physician ([facility]). This started today. Onset. (1 hour ago). 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 PAST MEDICAL HX: Immunizations: up-to-date. SOCIAL HX: Never smoker. Occasional alcohol use. No drug use. No infectious disease exposure. ABUSE ASSESSMENT: Abuse assessment: The patient was asked "Do you feel safe in your home?" and "Has anyone hurt you or threatened to hurt you?". No report of abuse. NUTRITIONAL RISK ASSESSMENT: The nutritional risk assessment revealed no deficiencies. FUNCTIONAL ASSESSMENT: Functional assessment: no impairments noted. LEARNING NEEDS ASSESSMENT: The learning needs assessment revealed no barriers. --12:49 Ashanti Gaston R.N. PAST MEDICAL HX: Has had a hysterectomy. --12:52 Ashanti Gaston R.N. PROBLEMS: Hypothyroidism. Bipolar Disorder. Migraine Headache. --12:48 Ashanti Gaston R.N. Ovarian Cyst. --12:52 Ashanti Gaston R.N. ADDITIONAL SURGERIES: Appendectomy. Breast Reduction. Cholecystectomy. Hysterectomy. Tubal Ligation. --12:49 Ashanti Gaston R.N. Interventions ID band on patient. Ambulatory. --12:49 Ashanti Gaston R.N. PHYSICAL ASSESSMENT 12:44. Ambulatory to room. GENERAL / NEURO / PSYCH: Alert. Appears in no acute distress. HEENT: Mucous membranes are pink. RESPIRATORY: Respirations not labored. CVS: Cardiac rhythm: normal sinus rhythm; (68). Pulses within normal limits. Capillary refill less than 2 seconds. GI / : Abdomen soft and nontender. EXTREMITIES: No lower extremity edema. SKIN: Skin is warm and dry. Skin is non-tender. --12:51 Ashanti Gaston R.N. NURSING PROGRESS NOTES EKG time: (7854). EKG was ordered, performed by a nurse and shown to the ED physician. --12:51 Ashanti Gaston R.N. 12:44. environmental monitoring technician, pulse oximeter and NIBP monitor placed on patient; cardiac rehab nurse- Lead II; monitor alarms on. Patient gowned. Head of bed elevated. --12:51 Ashanti Gaston R.N. Two patient identifiers checked. Call light placed in reach. Side rails up x 2. Bed placed in lowest position. Brakes of bed on. Patient ready for evaluation- chart flagged. --12:52 Ashanti Gaston R.N. 12:57 07/24/2016 Site #1 started via IV in the right antecubital space with an 20g angiocath, with aseptic technique and good blood return; two attempts. Blood drawn: rainbow set. Labeled in the presence of the patient and sent to the lab. Saline lock flushed with 10 mL saline. --13:02 Mirna Walker R.N. 13:05 07/24/2016 Aspirin PO Tablets 325 mg given. Allergies verified and confirmed 5 rights. --13:10 Mirna Walker R.N. Patient ID band checked for patient name, birthdate and medical record number: patient confirmed. Instructions provided to collect clean catch urine and patient verbalized understanding. Clean catch urine collected with return of orange-colored clear urine; sample sent to lab for urinalysis. Specimen labeled in the presence of the patient. --13:39 Ashanti Gaston R.N. 13:42 07/24/16. BP: 105/62. HR: 64. RR: 12. O2 saturation: 97%. Pain level now 9/10. --13:42 Carrie Prado R.N. 15:15 07/24/2016 Nitroglycerin SL 0.4 mg given. Allergies verified and confirmed 5 rights. --15:15 Dre Jules R.N. 15:15 07/24/16. BP: 104/62. HR: 67. RR: 20. O2 saturation: 100% on room air. --15:15 Dre Jules R.N. 15:15 07/24/16. Cardiac rhythm: normal sinus rhythm. --15:15 Dre Jules R.N. 15:24 07/24/16. BP: 98/69. HR: 73. RR: 15. O2 saturation: 100% on room air. --15:25 Dre Jules R.N. 15:25 07/24/16. Cardiac rhythm: normal sinus rhythm; (68). --15:25 Dre Jules R.N. 15:26 07/24/2016 Nitroglycerin SL Tablets 0.4 mg given. Allergies verified and confirmed 5 rights. (dose 2). --15:26 Dre Jules R.N. 15:26 07/24/2016 Nitroglycerin SL Response: no adverse reaction symptoms are the same. The patient feels the same. --15:26 Dre Jules R.N. DISPOSITION / DISCHARGE 15:45 07/24/2016 Site #1 removed upon discharge. --09:08 Dre Jules R.N. late entry -16:00 07/24/16. Departure time: 1600. Cardiac rhythm: normal sinus rhythm. Condition at departure: improved. The goals identified in the patient's plan of care were met. No learning barriers present. Discharge instructions provided and reviewed with the patient. Reviewed warnings. Reviewed medication(s). Treatments reviewed. Patient verbalized understanding. Written instructions provided in Slovenian. The patient was discharged by the physician. She was discharged home and accompanied by family. She left the Emergency Department ambulatory and via private vehicle. Family member driving. FALL RISK ASSESSMENT: Fall risk assessment completed. No fall risk identified. --09:09 Dre Jules R.N. <<STRICKEN ENTRY-- 09:07 07/31/16. BP: 112/68. HR: 72. RR: 16. O2 saturation: 99% on room air. Temp: 97.7 F (oral). Pain level now: 05/12. --09:09 Dre Jules R.N. --END STRIKE>> Correction --09:09 Dre Jules R.N. ( DC time was). --09:10 Dre Jules R.N. 15:59 07/24/16. BP: 112/68. HR: 72. RR: 16. O2 saturation: 99% on room air. Temp: 97.7 F (oral). Pain level now: 05/12. --09:10 Dre Jules R.N. Locked/Released at 07/31/2016 9:11 by Dre Jules R.N.
--- NOTE | 2016-07-24 15:34 | ED ORDER SUMMARY ---
..... Patient: TRE SNIDRE OrderSheet [facility] VisitID: [id number] [address] [place] [address] 40y, F Registration Date/Time: 07/24/2016 ORDER SHEET Weight: 121.5 kg (stated) Allergies: Abilify, Zyprexa GENERAL ORDERS: Siebel Consultant (Continuous) (12:53 07/24/2016 SReitz R.N. per protocol) (Ack 12:53 SReitz R.N.) (12:53 SReitz R.N.) UA-Culture if indicated Urgent (12:53 07/24/2016 SReitz R.N. per protocol) (Ack 12:54 Seamus) (13:39 SReitz R.N.) EKG - ER Stat (12:53 07/24/2016 SReitz R.N. per protocol) (12:53 SReitz R.N.) CBC w Diff Urgent (13:00 07/24/2016 Rocio ZENDEJAS) (13:03 JSvilmas R.N.) CMP Urgent (13:00 07/24/2016 Rocio ZENDEJAS) (13:03 Malories R.N.) PT with INR Urgent (13:00 07/24/2016 Rocio ZENDEJAS) (13:03 Malories R.N.) PTT Urgent (13:00 07/24/2016 Rocio ZENDEJAS) (13:03 Malories R.N.) Amylase Urgent (13:00 07/24/2016 Rocio ZENDEJAS) (13:03 Malories R.N.) Lipase Urgent (13:00 07/24/2016 Rocio ZENDEJAS) (13:04 Jr R.N.) CPK Urgent (13:00 07/24/2016 Rocio ZENDEJAS) (13:04 Jr R.N.) Troponin-I Urgent (13:00 07/24/2016 Rocio ZENDEJAS) (13:04 Jr R.N.) D-Dimer Urgent (13:00 07/24/2016 Rocio ZENDEJAS) (13:04 Jr R.N.) Urine Urgent (13:00 07/24/2016 Rocio ZENDEJAS) (Ack 13:10 Katt) (13:40 Navneet R.N.) PCT (Procalcitonin) Urgent (14:17 07/24/2016 Rocio ZENDEJAS) (Ack 14:22 Seamus) (14:22 Seamus) Chest 1V Urgent (14:21 07/24/2016 Rocio ZENDEJAS) (Ack 14:22 Seamus) (15:21 Seamus) MEDICATION ORDERS: Aspirin PO 325 mg (NOW) (13:00 07/24/2016 Rocio ZENDEJAS) (13:10 Jr R.N.) NitroGLYCERIN SL 0.4 mg (NOW, x3 PRN Chest Pain) (14:43 07/24/2016 Rocio ZENDEJAS) (Ack 15:04 Evens R.N.) (15:15 Evens R.N.) IV FLUIDS: IV Saline Lock (12:53 07/24/2016 Navneet Epperson.Jean Claude per protocol) (13:03 Jr R.N.) ORDER SHEET NOTES: [Electronically signed by Jarrett Fletcher MD (22:46 07/25/2016)] [Electronically signed by Dre Jules R.N. (09:11 07/31/2016)] [Electronically locked/signed by Dre Jules R.N. (09:11 07/31/2016)]
--- NOTE | 2016-07-24 15:34 | ED NURSING NOTES ---
Clinical Report - Nurses [facility] [address] [place] [address] 07/24/2016 12:36 Patient: TRE SNIDER TRIAGE Triage time 12:43. Acuity: LEVEL 3. Chief Complaint: CHEST PAIN. Alert. No acute distress. ( Pt. states she was just eating and then she started having chest pain is epigastric. The pain is worse on palpation.). SEPSIS SCREEN: Sepsis Screen. Negative (no infection suspected/documented). ABE COMA SCORE: [place] Coma Scale: 15- eyes open spontaneously (4); best verbal response- oriented x 4 (5); best motor response- obeys commands (6). --12:49 Ashanti Gaston R.N. 12:43 07/24/16. BP: 116/85. HR: 67. RR: 16. O2 saturation: 99%. Temp: 98.6 F. Pain level now 01/09. --12:49 Ashanti Gaston R.N. Weight: 121.5 kg stated. Height/Length: 72 inches Per Patient. BMI: 36.4. --12:44 Ashanti Gaston R.N. Medications Depakote Oral 1500mg daily. --12:46 Ashanti Gaston R.N. Topamax Oral, daily. --12:46 Ashanti Gaston R.N. Imitrex Oral, as needed. --12:46 Ashanti Gaston R.N. Ibuprofen Oral, as needed. --12:47 Ashanti Gaston R.N. Methocarbamol Oral, as needed. --12:47 Ashanti Gaston R.N. Propranolol HCl Oral, daily. --12:47 Ashanti Gaston R.N. SEROquel Oral, at bedtime. --12:47 Ashanti Gaston R.N. TraZODone HCl Oral, at bedtime. --12:47 Ashanti Gaston R.N. Pravastatin Sodium Oral, at bedtime. --12:48 Ashanti Gaston R.N. Levothyroxine Sodium Oral, daily. --12:48 Ashanti Gaston R.N. Allergies Abilify. Zyprexa. --12:48 Ashanti Gaston R.N. History Arrived by private vehicle. Historian: patient. Accompanied by (boyfriend). Primary physician ([facility]). This started today. Onset. (1 hour ago). 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 PAST MEDICAL HX: Immunizations: up-to-date. SOCIAL HX: Never smoker. Occasional alcohol use. No drug use. No infectious disease exposure. ABUSE ASSESSMENT: Abuse assessment: The patient was asked "Do you feel safe in your home?" and "Has anyone hurt you or threatened to hurt you?". No report of abuse. NUTRITIONAL RISK ASSESSMENT: The nutritional risk assessment revealed no deficiencies. FUNCTIONAL ASSESSMENT: Functional assessment: no impairments noted. LEARNING NEEDS ASSESSMENT: The learning needs assessment revealed no barriers. --12:49 Ashanti Gaston R.N. PAST MEDICAL HX: Has had a hysterectomy. --12:52 Ashanti Gaston R.N. PROBLEMS: Hypothyroidism. Bipolar Disorder. Migraine Headache. --12:48 Ashanti Gaston R.N. Ovarian Cyst. --12:52 Ashanti Gaston R.N. ADDITIONAL SURGERIES: Appendectomy. Breast Reduction. Cholecystectomy. Hysterectomy. Tubal Ligation. --12:49 Ashanti Gaston R.N. Interventions ID band on patient. Ambulatory. --12:49 Ashanti Gaston R.N. PHYSICAL ASSESSMENT 12:44. Ambulatory to room. GENERAL / NEURO / PSYCH: Alert. Appears in no acute distress. HEENT: Mucous membranes are pink. RESPIRATORY: Respirations not labored. CVS: Cardiac rhythm: normal sinus rhythm; (68). Pulses within normal limits. Capillary refill less than 2 seconds. GI / : Abdomen soft and nontender. EXTREMITIES: No lower extremity edema. SKIN: Skin is warm and dry. Skin is non-tender. --12:51 Ashanti Gaston R.N. NURSING PROGRESS NOTES EKG time: (7124). EKG was ordered, performed by a nurse and shown to the ED physician. --12:51 Ashanti Gaston R.N. 12:44. monitor and storage bin tender, pulse oximeter and NIBP monitor placed on patient; monitoring coordinator- Lead II; monitor alarms on. Patient gowned. Head of bed elevated. --12:51 Ashanti Gaston R.N. Two patient identifiers checked. Call light placed in reach. Side rails up x 2. Bed placed in lowest position. Brakes of bed on. Patient ready for evaluation- chart flagged. --12:52 Ashanti Gaston R.N. 12:57 07/24/2016 Site #1 started via IV in the right antecubital space with an 20g angiocath, with aseptic technique and good blood return; two attempts. Blood drawn: rainbow set. Labeled in the presence of the patient and sent to the lab. Saline lock flushed with 10 mL saline. --13:02 Mirna Walker R.N. 13:05 07/24/2016 Aspirin PO Tablets 325 mg given. Allergies verified and confirmed 5 rights. --13:10 Mirna Walker R.N. Patient ID band checked for patient name, birthdate and medical record number: patient confirmed. Instructions provided to collect clean catch urine and patient verbalized understanding. Clean catch urine collected with return of orange-colored clear urine; sample sent to lab for urinalysis. Specimen labeled in the presence of the patient. --13:39 Ashanti Gaston R.N. 13:42 07/24/16. BP: 105/62. HR: 64. RR: 12. O2 saturation: 97%. Pain level now 9/10. --13:42 Carrie Prado R.N. 15:15 07/24/2016 Nitroglycerin SL 0.4 mg given. Allergies verified and confirmed 5 rights. --15:15 Dre Jules R.N. 15:15 07/24/16. BP: 104/62. HR: 67. RR: 20. O2 saturation: 100% on room air. --15:15 Dre Jules R.N. 15:15 07/24/16. Cardiac rhythm: normal sinus rhythm. --15:15 Dre Jules R.N. 15:24 07/24/16. BP: 98/69. HR: 73. RR: 15. O2 saturation: 100% on room air. --15:25 Dre Jules R.N. 15:25 07/24/16. Cardiac rhythm: normal sinus rhythm; (68). --15:25 Dre Jules R.N. 15:26 07/24/2016 Nitroglycerin SL Tablets 0.4 mg given. Allergies verified and confirmed 5 rights. (dose 2). --15:26 Dre Jules R.N. 15:26 07/24/2016 Nitroglycerin SL Response: no adverse reaction symptoms are the same. The patient feels the same. --15:26 Dre Jules R.N. DISPOSITION / DISCHARGE 15:45 07/24/2016 Site #1 removed upon discharge. --09:08 Dre Jules R.N. late entry -16:00 07/24/16. Departure time: 1600. Cardiac rhythm: normal sinus rhythm. Condition at departure: improved. The goals identified in the patient's plan of care were met. No learning barriers present. Discharge instructions provided and reviewed with the patient. Reviewed warnings. Reviewed medication(s). Treatments reviewed. Patient verbalized understanding. Written instructions provided in Bengali. The patient was discharged by the physician. She was discharged home and accompanied by family. She left the Emergency Department ambulatory and via private vehicle. Family member driving. FALL RISK ASSESSMENT: Fall risk assessment completed. No fall risk identified. --09:09 Dre Jules R.N. <<STRICKEN ENTRY-- 09:07 07/31/16. BP: 112/68. HR: 72. RR: 16. O2 saturation: 99% on room air. Temp: 97.7 F (oral). Pain level now: 05/12. --09:09 Dre Jules R.N. --END STRIKE>> Correction --09:09 Dre Jules R.N. ( DC time was). --09:10 Dre Jules R.N. 15:59 07/24/16. BP: 112/68. HR: 72. RR: 16. O2 saturation: 99% on room air. Temp: 97.7 F (oral). Pain level now: 05/12. --09:10 Dre Jules R.N. Locked/Released at 07/31/2016 9:11 by Dre Jules R.N.
--- NOTE | 2016-07-24 15:34 | ED CLINICAL REPORT ---
Clinical Report - Physicians/Mid Levels [facility] [address] [place] [place] [address] 07/24/2016 12:36 Patient: TRE SNIDER Time Seen: 12:53. Arrived- By private vehicle. Historian- patient. HISTORY OF PRESENT ILLNESS Chief Complaint: CHEST PAIN. At its maximum, severity described as 10 / 10. When seen in the E.D., severity described as 8 / 10. Modifying factors. Not worsened by anything. Not relieved by anything. This started today at about 12:30 and is still present. It was abrupt in onset and has been intermittent and waxing/waning. Onset during rest. It is described as sharp. No radiation. No nausea or vomiting. She has had mild difficulty breathing. Similar symptoms previously: None. REVIEW OF SYSTEMS No chills, fever, sweats, abdominal pain or black stools. No bloody stools, constipation, diarrhea, nausea or vomiting. No urinary problems. All systems otherwise negative, except as recorded above. PAST HISTORY PCP - Rachael at [facility]. Problems: Ovarian Cyst. Hypothyroidism. Bipolar Disorder. Migraine Headache. Additional Surgeries: Appendectomy. Breast Reduction. Cholecystectomy. Hysterectomy. Tubal Ligation. Medications: Levothyroxine Sodium Oral, daily. Pravastatin Sodium Oral, at bedtime. TraZODone HCl Oral, at bedtime. SEROquel Oral, at bedtime. Propranolol HCl Oral, daily. Methocarbamol Oral, as needed. Ibuprofen Oral, as needed. Imitrex Oral, as needed. Topamax Oral, daily. Depakote Oral 1500mg daily. Allergies: Abilify. Zyprexa. SOCIAL HISTORY Never smoker. Occasional alcohol use. No drug use. Is a local resident. FAMILY HISTORY No history of aortic aneurysm or dissection. Heart disease in grandparent. ADDITIONAL NOTES The nursing notes have been reviewed. PHYSICAL EXAM Vital Signs: 07/24/2016 12:43 BP: 116/85. HR: 67. RR: 16. O2 saturation: 99%. Temp: 98.6 F. Have been reviewed. Appearance: Alert. No acute distress. She is morbidly obese. Eyes: Pupils equal, round and reactive to light. ENT: Pharynx normal. Neck: Normal inspection. Neck supple. CVS: Normal heart rate and rhythm. Heart sounds normal. Respiratory: No respiratory distress. Chest pain reproducible with palpation of the costochondral junction and with deep breathing. Breath sounds normal. Abdomen: Soft and nontender. Bowel sounds normal. No organomegaly. No mass. Back: Normal external inspection. Skin: Skin warm and dry. Normal skin color. Normal skin turgor. Extremities: Extremities exhibit normal ROM. No calf tenderness. No lower extremity edema. LABS, X-RAYS, AND EKG EKG: Rate: 65. Prior EKG unavailable. The study has been independently viewed by me. Chest X-ray: No acute disease. The X-rays were interpreted by the radiologist and contemporaneously by me. Laboratory Tests: UA-Culture if indicated: (RAY: 07/24/2016 13:40) ( [facility] 07/24/2016 14:12) Final results Test Result Flag Units (Reference) URINE COLOR YELLOW URINE APPEARANCE CLEAR URINE GLUCOSE NEGATIVE (NEGATIVE) URINE BILIRUBIN NEGATIVE (NEGATIVE) URINE KETONE NEGATIVE (NEGATIVE) URINE SPECIFIC GRAVITY 1.020 (1.010-1.030) URINE PH 6.0 (5.0-8.0) URINE PROTEIN NEGATIVE (NEGATIVE) URINE UROBILINOGEN 0.2 EU/dL (0.2-1.0) URINE NITRITE NEGATIVE (NEGATIVE) URINE BLOOD NEGATIVE (NEGATIVE) URINE LEUK ESTERASE TRACE (NEGATIVE) URINE RBC 0-1 rbc/hpf (0-1) URINE WBC 1-3 wbc/hpf (0-1) URINE EPITHELIAL CELLS RARE EPI/hpf (0-5) URINE BACTERIA FEW (1+) (NONE SEEN) URINE COMMENT CULTURE INDICATED TRACE MUCUSURINE CULTURES ARE SET-UP BASED ON THE FOLLOWING CRITERIA:POSITIVE NITRITEPOSITIVE LEUKOCYTE ESTERASEGREATER THAN 10 WHITE BLOOD CELLSMODERATE (2+) OR GREATER BACTERIA Urine: (RAY: 07/24/2016 13:40) ( [facility] 07/24/2016 13:56) Final results Test Result Flag Units (Reference) URINE NEGATIVE CBC w Diff: (RAY: 07/24/2016 13:00) ( MsgRcvd 07/24/2016 13:16) Final results Test Result Flag Units (Reference) WHITE BLOOD COUNT 15.5 H K/uL (4.5-11.5) RED BLOOD COUNT 5.21 H M/uL (4.00-5.20) HEMOGLOBIN 15.1 gm/dL (12.0-16.0) HEMATOCRIT 45.4 % (36.0-46.0) MEAN CELL VOLUME 87 fL (80-100) MEAN CORPUSCULAR HGB 29 pg (26-34) MEAN CORPUSCULAR HGB CONC 33 g/dL (31-37) RED CELL DISTRIBUTION WIDTH 14.4 % (11.6-14.8) PLATELET COUNT 276 K/uL (150-400) NEUTROPHIL % 52.1 % (50-75) LYMPH % 38.7 % (25-40) MONO % 8.3 % (3-14) EOSINOPHIL % 0.7 % (0-4) BASOPHIL % 0.2 % (0-2) PT with INR: (RAY: 07/24/2016 13:00) ( MsgRcvd 07/24/2016 13:35) Final results Test Result Flag Units (Reference) INR 1.0 (0.8-1.2) Low Intensity Therapy: INR 1.5-2.0 PT range 18.5-23.1Mod.Intensity Therapy: INR 2.0-3.0 PT range 23.1-31.5High Intensity Therapy: INR 2.5-3.5 PT range 27.4-35.5High Intensity Therapy 2: INR 3.0-4.0 PT range 31.5-39.3 APTT 25 SECONDS (24-34) D-DIMER QUANTITATIVE < 0.27 L ug/mLFEU (0.27-0.52) The primary value of this quantitative assay relates toits negative predictive value (i.e. exclusion) of pulmonaryembolism/deep vein thrombosis/DIC.Elevated levels of d-dimer may also occur with:, age, cancer, inflammation, liver disease,post-op, infection, hematoma, coronary disease, peripheralarteriopathy, bleeding disorders and thrombolytic treatment.Results should be correlated with other clinical andradiological data.Testing Methodology: Latex Immunoassay CMP: (RAY: 07/24/2016 13:00) ( MsgRcvd 07/24/2016 14:03) Final results Test Result Flag Units (Reference) GLUCOSE 93 mg/dL (70-110) BUN 13 mg/dL (7-18) CREATININE 1.1 mg/dL (0.6-1.3) Estimated GFR 57.89 mL/min Estimated GFR- >60 mL/min Note: Persistent reduction over 3 months in eGFR<60 mL/min/1.73 m2 defines CKD. Patients with eGFR values>=60 mL/min/1.73 m2 may also have CKD if evidence ofpersistent proteinuria. Additional information may be foundat www.kidney.org. SODIUM 140 mmol/L (136-145) POTASSIUM 3.6 mmol/L (3.5-5.1) CHLORIDE 105 mmol/L (98-107) CARBON DIOXIDE 25 mmol/L (21-32) CALCIUM 8.9 mg/dL (8.5-10.1) TOTAL PROTEIN 7.2 g/dL (6.4-8.2) ALBUMIN 3.7 g/dL (3.3-5.0) BILIRUBIN, TOTAL 0.6 mg/dL (0.0-1.0) ALKALINE PHOSPHATASE 94 U/L (46-116) AST (SGOT) 74 H U/L (15-37) ALT (SGPT) 52 U/L (12-78) LIPASE 256 U/L (73-393) AMYLASE 35 U/L (25-115) CPK 40 U/L (24-260) TROPONIN I <0.05 L ng/mL (0.00-1.5) TROPONIN REFERENCE RANGE:<0.1 NEGATIVE0.1-1.5 INDETERMINANT>1.5 POSITIVE . PROGRESS AND PROCEDURES Course of Care: Patient is stable. Patient/family counseled. Old medical records reviewed. Disposition: Discharged. Condition: stable. CLINICAL IMPRESSION Costochondritis INSTRUCTIONS No strenuous activity. Warnings: Further evaluation is necessary. GENERAL WARNINGS: Return or contact your physician immediately if your condition worsens or changes unexpectedly, if not improving as expected, or if other problems arise. Your Current Medications: CONTINUE TAKING THE FOLLOWING MEDICATIONS: Depakote Oral : 1500mg daily. Ibuprofen Oral : prn. Imitrex Oral : prn. Levothyroxine Sodium Oral : daily. Methocarbamol Oral : prn. Pravastatin Sodium Oral : at bedtime. Propranolol HCl Oral : daily. SEROquel Oral : at bedtime. Topamax Oral : daily. TraZODone HCl Oral : at bedtime. Prescription Medications: Ibuprofen 600mg tablets: take 1 tablet orally every 8 hours as needed for pain. Dispense thirty (30). No refills. Follow-up: Follow up with your doctor in four days. Call for the next available appointment. Understanding of the discharge instructions verbalized by patient and family. (Electronically signed by Jarrett Fletcher MD 07/25/2016 22:46)
--- NOTE | 2016-07-31 15:11 | ED DISCHARGE INSTRUCTIONS ---
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 Warnings: Further evaluation is necessary. GENERAL WARNINGS: Return or contact your physician immediately if your condition worsens or changes unexpectedly, if not improving as expected, or if other problems arise. Your Current Medications: CONTINUE TAKING THE FOLLOWING MEDICATIONS: Depakote Oral : 1500mg daily. Ibuprofen Oral : prn. Imitrex Oral : prn. Levothyroxine Sodium Oral : daily. Methocarbamol Oral : prn. Pravastatin Sodium Oral : at bedtime. Propranolol HCl Oral : daily. SEROquel Oral : at bedtime. Topamax Oral : daily. TraZODone HCl Oral : at bedtime. Prescription Medications: Ibuprofen 600mg tablets: take 1 tablet orally every 8 hours as needed for pain. Dispense thirty (30). No refills. Follow-up: Follow up with your doctor in four days. Call for the next available appointment. Understanding of the discharge instructions verbalized by patient and family. ADDITIONAL INFORMATION Chest Wall Pain: Costochondritis The chest pain that you have had today is caused by Costochondritis. This condition is due to an inflammation of the cartilage joining the ribs to the breastbone. It is not caused by heart or lung problems. Although the exact cause for costochondritis is not known, it often occurs during times of emotional stress. It can be painful, but it is not dangerous. It usually disappears within one to two weeks, but may recur. Rarely, a more serious condition may cause symptoms similar to costochondritis; therefore, watch for the warning signs listed below. Home Care: If you feel that emotional stress is a cause of your condition, try to identify sources of that stress. It may not be obvious! Learn ways to deal with the stress in your life such as regular exercise, muscle relaxation, meditation, or simply taking time out for yourself. For more information about this, consult your doctor or go to a local bookstore and review books and tapes available on the subject of stress reduction. You may use acetaminophen (Tylenol) or ibuprofen (Motrin, Advil) to control pain, unless another pain medicine was prescribed. [ NOTE: If you have liver disease or ever had a stomach ulcer, talk with your doctor before using these medicines.] The use of heat (hot wet compress or heating pad) with or without local analgesic creams (Deep Heat Rub, Shalom Palencia) will be helpful to reduce pain. Follow Up with your doctor as directed or sooner if you do not start to improve within the next two days. Get Prompt Medical Attention if any of the following occur: A change in the type of pain: if it feels different, becomes more severe, lasts longer, or spreads into your shoulder, arm, neck, jaw or back Shortness of breath or increased pain with breathing Weakness, dizziness, or fainting Cough with dark colored sputum (phlegm) or blood Abdominal pain Dark red or black stools Fever of 100.4F (38C) or higher, or as directed by your healthcare provider Ibuprofen Oral tablet What is this medicine? IBUPROFEN (eye BYOO proe fen) is a non-steroidal anti-inflammatory drug (NSAID). It is used for dental pain, fever, headaches or migraines, osteoarthritis, rheumatoid arthritis, or painful monthly periods. It can also relieve minor aches and pains caused by a cold, flu, or sore throat. How should I use this medicine? Take this medicine by mouth with a glass of water. Follow the directions on the prescription label. Take this medicine with food if your stomach gets upset. Try to not lie down for at least 10 minutes after you take the medicine. Take your medicine at regular intervals. Do not take your medicine more often than directed. A special MedGuide will be given to you by the pharmacist with each prescription and refill. Be sure to read this information carefully each time. Talk to your food service kitchen supervisor regarding the use of this medicine in children. Special care may be needed. What side effects may I notice from receiving this medicine? Side effects that you should report to your doctor or health healthcare management consultant as soon as possible: allergic reactions like skin rash, itching or hives, swelling of the face, lips, or tongue black or bloody stools, blood in the urine or in vomit breathing problems changes in vision chest pain general ill feeling or flu-like symptoms nausea or vomiting redness, blistering, peeling or loosening of the skin, including inside the mouth slurred speech or weakness on one side of the body stomach pain unexplained weight gain or swelling unusually weak or tired yellowing of eyes or skin Side effects that usually do not require medical attention (report to your doctor or health healthcare management consultant if they continue or are bothersome): constipation or diarrhea dizziness gas or heartburn stomach upset What may interact with this medicine? Do not take this medicine with any of the following medications: cidofovir ketorolac methotrexate pemetrexed This medicine may also interact with the following medications: alcohol aspirin diuretics lithium other drugs for inflammation like prednisone warfarin What if I miss a dose? If you miss a dose, take it as soon as you can. If it is almost time for your next dose, take only that dose. Do not take double or extra doses. Where should I keep my medicine? Keep out of the reach of children. Store at room temperature between 15 and 30 degrees C (59 and 86 degrees F). Keep container tightly closed. Throw away any unused medicine after the expiration date. What should I tell my health care provider before I take this medicine? They need to know if you have any of these conditions: asthma cigarette smoker drink more than 3 alcohol containing drinks a day heart disease or circulation problems such as heart failure or leg edema (fluid retention) high blood pressure kidney disease liver disease stomach bleeding or ulcers an unusual or allergic reaction to ibuprofen, aspirin, other NSAIDS, other medicines, foods, dyes, or preservatives or trying to get breast-feeding What should I watch for while using this medicine? Tell your doctor or healthcare professional if your symptoms do not start to get better or if they get worse. This medicine does not prevent heart attack or stroke. In fact, this medicine may increase the chance of a heart attack or stroke. The chance may increase with longer use of this medicine and in people who have heart disease. If you take aspirin to prevent heart attack or stroke, talk with your doctor or health healthcare management consultant. Do not take other medicines that contain aspirin, ibuprofen, or naproxen with this medicine. Side effects such as stomach upset, nausea, or ulcers may be more likely to occur. Many medicines available without a prescription should not be taken with this medicine. This medicine can cause ulcers and bleeding in the stomach and intestines at any time during treatment. Ulcers and bleeding can happen without warning symptoms and can cause . To reduce your risk, do not smoke cigarettes or drink alcohol while you are taking this medicine. You may get drowsy or dizzy. Do not drive, use machinery, or do anything that needs mental alertness until you know how this medicine affects you. Do not stand or sit up quickly, especially if you are an older patient. This reduces the risk of dizzy or fainting spells. This medicine can cause you to bleed more easily. Try to avoid damage to your teeth and gums when you brush or floss your teeth. You have been given the following additional information: Chest Wall Pain, Costochondritis Ibuprofen Oral tablet No strenuous activity. (Electronically signed by Jarrett Fletcher MD 07/25/2016 22:46)
--- NOTE | 2016-07-31 15:11 | ED MED RECONCILIATION SUMMARY ---
Patient: TRE SNIDER Medication Reconciliation Report [facility] VisitID: [id number] [address] [place] [place] [address] 40y, F Registration Date/Time: 07/24/2016 Weight: 121.5 kg Height/Length: 72 in. BMI: 36.4 ALLERGIES: Abilify, Zyprexa The patient's Home Medications are listed below: CONTINUE TAKING THE FOLLOWING MEDICATIONS: Depakote Oral 1500mg daily Ibuprofen Oral Imitrex Oral Levothyroxine Sodium Oral, daily Methocarbamol Oral Pravastatin Sodium Oral, at bedtime Propranolol HCl Oral, daily SEROquel Oral, at bedtime Topamax Oral, daily TraZODone HCl Oral, at bedtime The source(s) of the original Home Medication information: Not obtained. The following Medications were given to the patient in the Emergency Department: Aspirin [PO] PO 325 mg, administered: 07/24/2016 1:05:00 PM Nitroglycerin [SL] SL 0.4 mg, administered: 07/24/2016 3:15:00 PM Nitroglycerin [SL] SL 0.4 mg, administered: 07/24/2016 3:26:00 PM The following Medications were prescribed to the patient: Ibuprofen 600mg tablets: take 1 tablet orally every 8 hours as needed for pain. Dispense thirty (30). No refills. -- Jarrett Fletcher MD
--- NOTE | 2016-07-31 15:11 | ED MED RECONCILIATION SUMMARY ---
Patient: TRE SNIDER Medication Reconciliation Report [facility] VisitID: [id number] [address] [place] [place] [address] 40y, F Registration Date/Time: 07/24/2016 Weight: 121.5 kg Height/Length: 72 in. BMI: 36.4 ALLERGIES: Abilify, Zyprexa The patient's Home Medications are listed below: CONTINUE TAKING THE FOLLOWING MEDICATIONS: Depakote Oral 1500mg daily Ibuprofen Oral Imitrex Oral Levothyroxine Sodium Oral, daily Methocarbamol Oral Pravastatin Sodium Oral, at bedtime Propranolol HCl Oral, daily SEROquel Oral, at bedtime Topamax Oral, daily TraZODone HCl Oral, at bedtime The source(s) of the original Home Medication information: Not obtained. The following Medications were given to the patient in the Emergency Department: Aspirin [PO] PO 325 mg, administered: 07/24/2016 1:05:00 PM Nitroglycerin [SL] SL 0.4 mg, administered: 07/24/2016 3:15:00 PM Nitroglycerin [SL] SL 0.4 mg, administered: 07/24/2016 3:26:00 PM The following Medications were prescribed to the patient: Ibuprofen 600mg tablets: take 1 tablet orally every 8 hours as needed for pain. Dispense thirty (30). No refills. -- Jarrett Fletcher MD
--- NOTE | 2016-07-31 15:11 | ED MAR SUMMARY ---
..... Medication Administration Record [facility] [address] [place] [address] Patient: TRE SNIDER Visit ID: [id number] 40y, F Weight: 121.5 kg Height/Length: 72 in BMI: 36.4 ALLERGIES: Abilify, Zyprexa Given 13:05 07/24/2016 Mirna Walker R.N. Medication Administered: ASPIRIN [PO], Dose: 325 mg Tablets PO. Medication Ordered: Aspirin PO 325 mg (NOW). Given 15:15 07/24/2016 Dre Jules R.N. Medication Administered: NITROGLYCERIN [SL], Dose: 0.4 mg SL. Medication Ordered: NitroGLYCERIN SL 0.4 mg (NOW, x3 PRN Chest Pain). Given 15:26 07/24/2016 Dre Jules R.N. Medication Administered: NITROGLYCERIN [SL], Dose: 0.4 mg Tablets SL. Medication Ordered: NitroGLYCERIN SL 0.4 mg (NOW, x3 PRN Chest Pain).
--- NOTE | 2016-07-31 15:11 | ED MAR SUMMARY ---
..... Medication Administration Record [facility] [address] [place] [address] Patient: TRE SNIDER Visit ID: [id number] 40y, F Weight: 121.5 kg Height/Length: 72 in BMI: 36.4 ALLERGIES: Abilify, Zyprexa Given 13:05 07/24/2016 Mirna Walker R.N. Medication Administered: ASPIRIN [PO], Dose: 325 mg Tablets PO. Medication Ordered: Aspirin PO 325 mg (NOW). Given 15:15 07/24/2016 Dre Jules R.N. Medication Administered: NITROGLYCERIN [SL], Dose: 0.4 mg SL. Medication Ordered: NitroGLYCERIN SL 0.4 mg (NOW, x3 PRN Chest Pain). Given 15:26 07/24/2016 Dre Jules R.N. Medication Administered: NITROGLYCERIN [SL], Dose: 0.4 mg Tablets SL. Medication Ordered: NitroGLYCERIN SL 0.4 mg (NOW, x3 PRN Chest Pain).
== END 2016-07-24 15:46 | disposition home or self-care (01) ==
LOC: ED SRH 12:35
DX: M94.0 Chondrocostal junction syndrome [Tietze] (principal); E03.9 Hypothyroidism, unspecified; Z79.899 Other long term (current) drug therapy; Z88.8 Allergy status to other drugs, medicaments and biological substances
CPT/HCPCS: 90004; 90100; 90469; 90616; 91556; 92235; 92530; 92610; 93004; 93070; 94001; 94060; 95059